=== PATIENT | female | born 1950 | race Caucasian/White ===

== ENCOUNTER 2017-10-16 23:44 | Emergency (ER) | payer MEDICARE ==
[~2017-10-16] VITALS: Ht 157.5 cm; Wt 67.1 kg
[2017-10-17] MEDS ORDERED: VENTOLIN HFA18 GM INH (00:02)
[2017-10-17] MEDS ORDERED: TYLENOL325 MG PO (00:02)
[2017-10-17] MEDS ORDERED: OMEPRAZOLE20 MG PO ×2 (00:19→00:53)
[2017-10-17] MEDS ORDERED: LEXAPRO20 MG PO (00:19)
[2017-10-17] MEDS ORDERED: NICOTINE PATCH1 EAC4 TD (00:20)
--- NOTE | 2017-10-18 16:20 | EKG ---
[facility] [address] [facility] [place], [place] [address] Signed Sinus bradycardia Otherwise normal ECG No previous ECGs available Confirmed by ARIELA ANDREWS DO ([id number]) on 10/18/2017 4:19:52 PM Electronically Signed By: ARIELA ANDREWS DO 10/18/17 1620 PATIENT NAME: HANH CHING Electrocardiogram DATE OF : 52 PHYSICIAN: ARIELA ANDREWS DO REPORT #: [id number] REPORT IS CONFIDENTIAL AND NOT TO BE RELEASED WITHOUT AUTHORIZATION
== END 2017-10-17 01:29 | disposition home or self-care (01) ==
LOC: ED 23:44
DX: R10.13 Epigastric pain (principal); Z87.891 Personal history of nicotine dependence
CPT/HCPCS: 71045; 80053; 84484; 85025; 93005; 93010; 96361; 96374; 96375; 99284; J2405; J7030